=== PATIENT | female | born 1985 | race Caucasian/White ===

== ENCOUNTER 2021-02-16 14:29 | Emergency (ER) | payer SELFPAY ==
[~2021-02-16] VITALS: Ht 152 cm; Wt 63.5 kg
--- NOTE | 2021-02-16 14:57 | ED Lower Extremity ---
General Chief Complaint: Lower Extremity Stated Complaint: L ANKLE PAIN/SWOLLEN Source: patient Exam Limitations: no limitations History of Present Illness Date Seen by Provider: Feb 16, 2021 Time Seen by Provider: 14:36 Initial Comments The patient presents to the ER by private conveyance from home with chief complaint that for the last 3 days she has had increasing swelling pain and redness surrounding a wound that has been going on for the past 3 months. In itially the wound was caused by a weedeater on the medial side of her left lower extremity distal espinoza. She says she been treating the wound diligently daily with hydrogen peroxide and alcohol. She is been slicing it with an antibiotic ointment. She did see her doctor, Dr. Castillo at [facility] 2 months ago and he put her on Bactrim for a week. She took those antibiotics. He has since from [facility] and she has not followed up with anybody. She is not having any fevers nausea vomiting or diarrhea. She is asplenic and is up-to-date on all her vaccinations including Tdap. She is not however up-to-date on Covid vaccination. Allergies and Home Medications Allergies Coded Allergies: No Known Drug Allergies (Unverified , 02/16/21) Patient Home Medication List Home Medication List Reviewed: Yes Doxycycline Hyclate (Doxycycline Hyclate) 100 Mg Tablet, 100 MG PO BID Prescribed by: MAY CHANDRA on 02/16/21 1503 Review of Systems Constitutional: No chills, No fever, No malaise EENTM: No ear discharge, No ear pain Respiratory: No cough, No short of breath Cardiovascular: No chest pain, No edema Gastrointestinal: No abdominal pain, No nausea, No vomiting Genitourinary: No discharge, No dysuria Musculoskeletal: see HPI; No back pain, No joint pain Skin: see HPI, change in color, lesions Psychiatric/Neurological: Denies Anxiety, Denies Depressed All Other Systems Reviewed Negative Unless Noted: Yes Past Hfmlllv-Xgrkqi-Mymanj Hx Patient Social History Tobacco Use?: Yes Smoking Status: Current Everyday Smoker Smokeless Tobacco Frequency: Current Everyday User (Half pack per day) Substance use?: Yes Substance type: Marijuana Alcohol Use?: No Physical Exam Vital Signs Vital Signs - First Documented 02/16/21 14:35 Temp 36.8 Pulse 100 Resp 20 B/P (MAP) 184/98 (126) Pulse Ox 99 O2 Delivery Room Air Capillary Refill : Height, Weight, BMI Height: '" Weight: lbs. oz. kg; BMI Method: General Appearance: WD/WN, no apparent distress HEENT: PERRL/EOMI, TMs normal, pharynx normal Neck: full range of motion, supple, normal inspection Cardiovascular: normal peripheral pulses, regular rate, rhythm Respiratory: lungs clear, normal breath sounds, no respiratory distress, no accessory muscle use Hips: bilateral hip non-tender, bilateral hip normal inspection, bilateral hip normal range of motion Legs: bilateral leg non-tender, bilateral leg normal range of motion; left leg soft tissue tenderness, left leg swelling (Erythema, erythema, dolor, calor, rubor 1.5 cm proximal to the wound and down to the ankle) Neurologic/Psychiatric: alert, normal mood/affect Skin: other (Erythematous and mildly swollen left lower extremity as described above. Patches of dried eschar on the medial portion of the left lower extremity that are not weeping or draining.) Progress/Results/Core Measures Results/Orders My Orders Orders - MAY CHANDRA Ceftriaxone (Rocephin) (02/16/21 15:00) Lidocaine 1% Inj 20 Ml (Xylocaine 1% Inj (02/16/21 15:00) Medications Given in ED Current Medications Medications Dose Ordered Sig/Ladan Route Start Time Stop Time Status Last Admin Dose Admin Ceftriaxone Sodium 1,000 mg ONCE ONCE IM 02/16/21 15:00 02/16/21 15:01 DC 02/16/21 15:05 1,000 MG Lidocaine HCl 2.1 ml ONCE ONCE INJ 02/16/21 15:00 02/16/21 15:01 DC 02/16/21 15:05 2.1 ML Vital Signs/I&O 02/16/21 02/16/21 14:35 15:16 Temp 36.8 36.8 Pulse 100 100 Resp 20 20 B/P (MAP) 184/98 (126) 126/84 Pulse Ox 99 99 O2 Delivery Room Air Room Air Progress Progress Note : Time: 14:56 Progress Note Counseled appropriate management of wound care and cellulitis. We will put her on doxycycline for 10 days. Return precautions were given. Instructed to follow-up with a primary care doctor in 1 to 2 weeks. Because of her history of asplenia we are going to give her a referral to wound care to help manage her here locally until she can get in with a primary care doctor. Rocephin 1 g IM. Departure Impression Primary Impression: Cellulitis of left lower leg Disposition: HOME, SELF-CARE Condition: Stable Departure-Patient Inst. Decision time for Depature: 14:58 Referrals: NO,LOCAL PHYSICIAN (PCP) Primary Care Physician CATRINA ZABALA MD Patient Instructions: Cellulitis (Skin Infection), Adult (DC) Add. Discharge Instructions: Keep the wound clean with regular soap and water, body wash or shampoo. Avoid antibacterial soaps and ointments as these are unnecessary and may lead to delay wound healing. Do not use astringents such as alcohol, peroxide, chlorhexidine or iodine as this may lead to prolonged wound healing times. While at home I recommend you keep the wound open to air as much as possible. It is okay however to dress it with a light gauze dressing and tape as necessary especially in a particularly kenrick/dirty environment. Doxycycline 1 capsule twice a day with food for the next 10 days. Expect to see improvement in 3 to 4 days and in terms of swelling, pain and redness on the antibiotics. If you see redness traveling up your mid thigh or you experience fever, vomiting or other worrisome symptoms then I recommend you follow-up the same day in the nearest ER. Drink plenty of fluids. Elevate your leg above the level of your heart while at rest. Warm moist heat will help reduce pain. Plan to follow-up with the primary care doctor in the next week. You may also follow-up with wound care, Dr. Zabala by calling for an appointment at the wound care center at [phone]. Tylenol 1000 mg every 8 hours as necessary for pain. Ibuprofen 800 mg every 8 hours as necessary for pain. All discharge instructions reviewed with patient and/or family. Voiced understanding. Scripts Doxycycline Hyclate (Doxycycline Hyclate) 100 Mg Tablet 100 MG PO BID for 10 Days, #20 TAB 0 Refills Prov: MAY CHANDRA 02/16/21 Copy Copies To 1: CATRINA ZBAALA MD, TITUS J Feb 16, 2021 14:57
[2021-02-16] MEDS ORDERED: cefTRIAXone 1,000 MG VIAL IM ONE (15:00)
[2021-02-16] MEDS ORDERED: LIDOCAINE 1% INJ 20 ML 20 ML VIAL INJ ONE (15:00)
[2021-02-16] MEDS ORDERED: DOXY100T2 PO (15:03)
[2021-02-16 15:16] VITALS: BP 126/84
== END 2021-02-16 15:17 | disposition home or self-care (01) ==
LOC: ER 14:31 → EDBD 14:31 → ER 15:17
DX: L03.116 Cellulitis of left lower limb (principal); F17.210 Nicotine dependence, cigarettes, uncomplicated
CPT/HCPCS: 99284

== ENCOUNTER 2021-11-13 23:59 | Emergency (ER) | payer SELFPAY ==
[~2021-11-13 23:59] MED LIST: DOXY100T2 PO
[2021-11-14 00:07] VITALS: BP 134/100
[2021-11-14] MEDS ORDERED: FAMOTIDINE 20MG/2ML IV (PEPCID) IV STA (00:39)
[2021-11-14] MEDS ORDERED: methylPREDNISolone 125 MG (Solu-MEDROL) VIAL IV STA (00:39)
[2021-11-14] MEDS ORDERED: diphenhydrAMINE 50 MG/ML INJ (BENADRYL) IV STA (00:39)
[2021-11-14] MEDS ORDERED: LACTATED RINGERS 1,000 ML IV ONE (00:45)
[2021-11-14 00:55] LABS: BILIRUBIN,URINE NEGATIVE (NEGATIVE); CLARITY,URINE CLEAR; COLOR,URINE YELLOW; GLUCOSE, URINE (UA) NEGATIVE (NEGATIVE); KETONES,URINE NEGATIVE (NEGATIVE); LEUKOCYTE ESTERASE ,URINE NEGATIVE (NEGATIVE); NITRITE,URINE NEGATIVE (NEGATIVE); PROTEIN,URINE NEGATIVE (NEGATIVE)
[2021-11-14 01:03] LABS: BACTERIA,URINE NEGATIVE /HPF
[2021-11-14 01:07] LABS: AMPHETAMINE SCREEN, URINE POSITIVE (NEGATIVE); BARBITURATE SCREEN URINE NEGATIVE (NEGATIVE); BENZODIAZEPINES SCREEN URINE NEGATIVE (NEGATIVE); CANNABINOID SCREEN, URINE POSITIVE (NEGATIVE); COCAINE SCREEN URINE NEGATIVE (NEGATIVE); METHADONE STAT NEGATIVE (NEGATIVE); OPIATE SCREEN URINE NEGATIVE (NEGATIVE); OXYCODONE STAT NEGATIVE (NEGATIVE); PROPOXYPHENE STAT NEGATIVE (NEGATIVE); TRICYCLIC ANTIDEPRESSANTS SCRE NEGATIVE (NEGATIVE)
--- NOTE | 2021-11-14 01:16 | ED General ---
General Chief Complaint: Allergic Reaction Stated Complaint: RASH,KEEPS PASSING OUT,LEFT LEG INJURY Nursing Triage Note: PT PRESENTS AND REPORTS RASH TO BACK AND ARMS. REPORTS LOC X2 TODAY. DENIES HITTING HEAD. REPORTS LOC AT HOME AND HER LEFT LEG GOING THROUGH THE VENT IN HER FLOOR. REPORTS LEFT LEG PAIN AND SWELLING. ABRASIONS NOTED TO LEFT LEG. Source of Information: Patient (SPEECH RAPID AND ERRATIC, EMOTIONALLY LABILE AND LAUGHING INTERMITTENTLY FOR NO APPARENT REASON) History of Present Illness Date Seen by Provider: Nov 14, 2021 Time Seen by Provider: 00:30 Initial Comments PT ARRIVES VIA POV FROM HOME PT WITH MULTIPLE COMPLAINTS C/O "POISON SUMAC" TO ARMS, LEGS AND TRUNK FOR THE LAST 3 DAYS STATES SHE WAS OUTSIDE SEVERAL DAYS AGO STATES RASH IS SPREADING, AND IS VERY ITCHY HAS NOT TAKEN ANYTHING FOR SYMPTOMS HAS NOT SOUGHT CARE UNTIL TONIGHT ALSO STATES SHE "PASSED OUT TWICE TODAY" FIRST TIME WAS [facility], AND SECOND TIME WAS AT HOME--BOTH EPISODES WERE THIS AFTERNOON C/O PAIN TO LEFT MONTES AREA HAS NOT TAKEN ANYTHING FOR PAIN NO PARESTHESIAS OR MOTOR DEFICITS HAD SWEATS THE FIRST TIME WHEN SHE "CAME TO' NO CHEST PAIN, NO PALPITATATIONS, NO SHORTNESS OF BREATH NO NAUSEA/VOMITING NO HEADACHE NO NECK OR BACK PAIN STATES SHE DOES NOT HAVE ANY ELECTRICITY IN HER HOME, BUT TEMP HAS NOT BEEN VERY HIGH THE LAST FEW DAYS. STATES SHE HAS USED METH FOR OVER 20 YEARS-SMOKES IT--HAS NEVER CAUSED HER TO PASS OUT. CLAIMS SHE HASN'T USED ANYTHING "FOR A COUPLE OF MONTHS" PT IS NOT COVID VACCINATED PCP: WAS DR. BROWN IN [place], [place]--HE FROM COVID OVER A YEAR AGO--[facility], AND PT HAS NOT ESTABLISHED WITH A NEW DR. PT LIVES IN [place], [place] Allergies and Home Medications Allergies Coded Allergies: No Known Drug Allergies (Unverified , 02/16/21) Patient Home Medication List Home Medication List Reviewed: Yes Doxycycline Hyclate (Doxycycline Hyclate) 100 Mg Tablet, 100 MG PO BID Prescribed by: MAY CHANDRA on 02/16/21 1503 Methylprednisolone (Medrol) 4 Mg Tab.ds.pk, 4 MG PO UD Prescribed by: ISIDORO SIMONS on 11/14/21 0201 Mometasone Furoate (Mometasone Furoate) 0.1 % Cream..g., 45 GM TP TID Prescribed by: ISIDORO SIMONS on 11/14/21 0201 Review of Systems Review of Systems Constitutional: see HPI EENTM: no symptoms reported Respiratory: no symptoms reported; No short of breath Cardiovascular: No chest pain; syncope Gastrointestinal: no symptoms reported; No abdominal pain, No diarrhea, No nausea, No vomiting Genitourinary: no symptoms reported : No (IUD IN PLACE) LMP: Nov 06, 2021 Musculoskeletal: see HPI Skin: see HPI Psychiatric/Neurological: Anxiety; Denies Headache, Denies Numbness, Denies Paresthesia, Denies Tingling, Denies Tremors, Denies Weakness Hematologic/Lymphatic: No Symptoms Reported Immunological/Allergic: no symptoms reported Past Bgvlpfc-Jntdbf-Titjax Hx Patient Social History Tobacco Use?: Yes Tobacco type used: Cigarettes Smoking Status: Current Everyday Smoker Substance use?: Yes Substance type: Methamphetamine, Marijuana Substance frequency: Daily Alcohol Use?: No Pt feels they are or have been: No Immunizations Up To Date Influenza Vaccine Up-to-Date: Yes; Up-to-Date Past Medical History Surgery/Hospitalization HX: SPLEENIC Surgeries: Yes (SPLEEN REMOVED) Abdominal Respiratory: No Cardiac: No Neurological: No : No Reproductive Disorders: No Female Reproductive Disorders: Denies LIFE SCIENCE TECHNICIAN History: IUD Genitourinary: No Gastrointestinal: Yes (SPLEEN REMOVED) Musculoskeletal: No Endocrine: No HEENT: No Cancer: No Psychosocial: Yes (SUBSTANCE ABUSE) Integumentary: No Blood Disorders: No Physical Exam Vital Signs Vital Signs - First Documented 11/14/21 00:07 Pulse 89 Resp 18 B/P (MAP) 134/100 (111) Pulse Ox 95 O2 Delivery Room Air Capillary Refill : Height, Weight, BMI Height: '" Weight: lbs. oz. kg; 27.00 BMI Method: General Appearance: No Apparent Distress, WD/WN, Anxious, Other (SPEECH RAPID AND SOMEWHAT MUMBLED AND ERRATIC, AND LABILE EMOTIONS WITH FREQUENT LAUGHING FOR NO APPARENT REASON OR INAPPROPRIATELY) HEENT: PERRL/EOMI, Other (NO SWELLING OR RASH TO FACE OR LIPS/MOUTH) Neck: Normal Inspection Respiratory: Normal Breath Sounds, No Accessory Muscle Use, No Respiratory Distress Cardiovascular: Regular Rate, Rhythm, No Edema, No JVD, No Murmur, Normal Peripheral Pulses Gastrointestinal: Non Tender, Soft Extremity: Normal Capillary Refill, No Calf Tenderness, No Pedal Edema, Other (TENDERNESS TO LEFT MONTES, WITH VERY MINOR/SUPERFICIAL ABRASION. ) Neurologic/Psychiatric: Alert, Oriented x3, No Motor/Sensory Deficits, washroom cleaner II- XII Norm as Tested Skin: Normal Color, Warm/Dry, Rash (PATCHY MACULOPAPULAR RASH WITH A FEW VESICLES--SOME WITH LINEAR DISTRIBUTION--SCATTERED ON ARMS, LEGS AND TRUNK. NONE ON FACE, NECK, PALMS OR SOLES. NO SIGNS OF SECONDARY INFECTION. ) Progress/Results/Core Measures Suspected Sepsis SIRS Temperature: Pulse: 89 Respiratory Rate: 18 Laboratory Tests 11/14/21 01:04: White Blood Count 8.8 Blood Pressure 134 /100 Mean: 111 Laboratory Tests 11/14/21 01:04: Creatinine 0.71, Platelet Count 491H, Total Bilirubin 0.3 Results/Orders Lab Results Laboratory Tests Test 11/14/21 00:50 11/14/21 01:04 Range/Units Urine Color YELLOW Urine Clarity CLEAR Urine pH 6.0 5-9 Urine Specific [place] <=1.005 1.016-1.022 Urine Protein NEGATIVE NEGATIVE Urine Glucose (UA) NEGATIVE NEGATIVE Urine Ketones NEGATIVE NEGATIVE Urine Nitrite NEGATIVE NEGATIVE Urine Bilirubin NEGATIVE NEGATIVE Urine Urobilinogen 0.2 < = 1.0 MG/DL Urine Leukocyte Esterase NEGATIVE NEGATIVE Urine RBC (Auto) NEGATIVE NEGATIVE Urine RBC NONE /HPF Urine WBC NONE /HPF Urine Squamous Epithelial Cells 5-10 /HPF Urine Crystals NONE /LPF Urine Bacteria NEGATIVE /HPF Urine Casts NONE /LPF Urine Mucus NEGATIVE /LPF Urine Culture Indicated NO Urine Opiates Screen NEGATIVE NEGATIVE Urine Oxycodone Screen NEGATIVE NEGATIVE Urine Methadone Screen NEGATIVE NEGATIVE Urine Propoxyphene Screen NEGATIVE NEGATIVE Urine Barbiturates Screen NEGATIVE NEGATIVE Ur Tricyclic Antidepressants Screen NEGATIVE NEGATIVE Urine Phencyclidine Screen NEGATIVE NEGATIVE Urine Amphetamines Screen POSITIVE H NEGATIVE Urine Methamphetamines Screen POSITIVE H NEGATIVE Urine Benzodiazepines Screen NEGATIVE NEGATIVE Urine Cocaine Screen NEGATIVE NEGATIVE Urine Cannabinoids Screen POSITIVE H NEGATIVE White Blood Count 8.8 4.3-11.0 10^3/uL Red Blood Count 3.81 3.80-5.11 10^6/uL Hemoglobin 10.6 L 11.5-16.0 g/dL Hematocrit 33 L 35-52 % Mean Corpuscular Volume 87 80-99 fL Mean Corpuscular Hemoglobin 28 25-34 pg Mean Corpuscular Hemoglobin Concent 32 32-36 g/dL Red Cell Distribution Width 16.4 H 10.0-14.5 % Platelet Count 491 H 130-400 10^3/uL Mean Platelet Volume 9.5 9.0-12.2 fL Immature Granulocyte % (Auto) 0 % Neutrophils (%) (Auto) 53 42-75 % Lymphocytes (%) (Auto) 32 12-44 % Monocytes (%) (Auto) 10 0-12 % Eosinophils (%) (Auto) 3 0-10 % Basophils (%) (Auto) 1 0-10 % Neutrophils # (Auto) 4.7 1.8-7.8 10^3/uL Lymphocytes # (Auto) 2.9 1.0-4.0 10^3/uL Monocytes # (Auto) 0.9 0.0-1.0 10^3/uL Eosinophils # (Auto) 0.3 0.0-0.3 10^3/uL Basophils # (Auto) 0.1 0.0-0.1 10^3/uL Immature Granulocyte # (Auto) 0.0 0.0-0.1 10^3/uL Sodium Level 141 135-145 MMOL/L Potassium Level 3.5 L 3.6-5.0 MMOL/L Chloride Level 105 98-107 MMOL/L Carbon Dioxide Level 25 21-32 MMOL/L Anion Gap 11 5-14 MMOL/L Blood Urea Nitrogen 6 L 7-18 MG/DL Creatinine 0.71 0.60-1.30 MG/DL Estimat Glomerular Filtration Rate 114 BUN/Creatinine Ratio 8 Glucose Level 70 70-105 MG/DL Calcium Level 8.9 8.5-10.1 MG/DL Corrected Calcium 9.0 8.5-10.1 MG/DL Magnesium Level 1.9 1.6-2.4 MG/DL Total Bilirubin 0.3 0.1-1.0 MG/DL Aspartate Amino Transf (AST/SGOT) 16 5-34 U/L Alanine Aminotransferase (ALT/SGPT) 16 0-55 U/L Alkaline Phosphatase 74 40-136 U/L Troponin I < 0.028 <0.028 NG/ML Total Protein 6.4 6.4-8.2 GM/DL Albumin 3.9 3.2-4.5 GM/DL Serum Test, Qualitative NEGATIVE NEGATIVE Serum Alcohol < 10 <10 MG/DL My Orders Orders - KRISTYNISIDOROAndrew Palacios DO Ed Iv/Invasive Line Start (11/14/21 00:39) Ekg Tracing (11/14/21 00:39) Monitor-Rhythm Ecg Trace Only (11/14/21 00:39) Alcohol (11/14/21 00:39) Cbc With Automated Diff (11/14/21 00:39) Comprehensive Metabolic Panel (11/14/21 00:39) Drug Screen Stat (Urine) (11/14/21 00:39) Magnesium (11/14/21 00:39) Ua Culture If Indicated (11/14/21 00:39) Troponin I [place] (11/14/21 00:39) Tibia/Fibula, Left, 2 Views (11/14/21 00:39) Ed Iv/Invasive Line Start (11/14/21 00:39) Lactated Ringers (Lr 1000 Ml Iv Solution (11/14/21 00:45) Famotidine Injection (Pepcid Injection) (11/14/21 00:39) Diphenhydramine Injection (Benadryl Inje (11/14/21 00:39) Methylprednisolone Sod Succ (Solu-Medrol (11/14/21 00:39) Hcg,Qualitative Serum (11/14/21 01:01) Medications Given in ED Current Medications Medications Dose Ordered Sig/Ladan Route Start Time Stop Time Status Last Admin Dose Admin Lactated Ringer's 1,000 ml @ 0 mls/hr Q0M ONCE IV 11/14/21 00:45 11/14/21 00:46 DC 11/14/21 00:59 0 MLS/HR Vital Signs/I&O 11/14/21 00:07 Pulse 89 Resp 18 B/P (MAP) 134/100 (111) Pulse Ox 95 O2 Delivery Room Air Capillary Refill : Blood Pressure Mean: 111 Progress Note : Progress Note GIVEN BENADRYL, PEPCID AND SOLU-MEDROL WITH IMPROVEMENT IN ITCHING NO DETERIORATION IN PT'S CONDITION DURING ER STAY ECG Initial ECG Impression Date: Nov 14, 2021 Initial ECG Impression Time: 00:48 Initial ECG Rate: 68 Initial ECG Rhythm: Normal Sinus Initial ECG Impression: Normal Diagnostic Imaging Comments LEFT TIB-FIB XRAYS--NO ACUTE PROCESS, PENDING RADIOLOGIST REVIEW Reviewed: Reviewed by Me Departure Impression Primary Impression: Rash Additional Impressions: SELF REPORTED SYNCOPAL EPISODES Illicit drug use Contusion of left lower leg Disposition: HOME, SELF-CARE Condition: Stable Departure-Patient Inst. Decision time for Depature: 01:55 Referrals: NO,LOCAL PHYSICIAN (PCP/Family) Primary Care Physician Patient Instructions: Skin Rash (DC), Taking Care of Bruises, Substance Use Disorder ED Add. Discharge Instructions: NO DRUGS LOTS OF CLEAR LIQUIDS-NO COFFEE, POP OR TEA FOLLOW UP WITH YOUR DR IF SYMPTOMS PERSIST All discharge instructions reviewed with patient and/or family. Voiced understanding. Scripts Methylprednisolone (Medrol) 4 Mg Tab.ds.pk 4 MG PO UD for 6 Days, #21 PKG PER DOSE PACK INSTRUCTIONS Prov: ISIDORO SIMONS DO 11/14/21 Mometasone Furoate (Mometasone Furoate) 0.1 % Cream..g. 45 GM TP TID, #1 TUBE Prov: ISIDORO SIMONS DO 11/14/21 ISIDORO SIMONS DO Nov 14, 2021 01:16
[2021-11-14 01:20] LABS: BASOPHILS # (AUTO) 0.1 10^3/uL (0.0-0.1); BASOPHILS % (AUTO) 1 % (0-10); EOSINOPHILS # (AUTO) 0.3 10^3/uL (0.0-0.3); EOSINOPHILS % (AUTO) 3 % (0-10); HEMATOCRIT 33 % (35-52); HEMOGLOBIN 10.6 g/dL (11.5-16.0); LYMPHOCYTES # (AUTO) 2.9 10^3/uL (1.0-4.0); LYMPHOCYTES % (AUTO) 32 % (12-44); MEAN CORPUSCULAR HEMOGLOBIN 28 pg (25-34); MEAN CORPUSCULAR HGB CONC 32 g/dL (32-36); MEAN CORPUSCULAR VOLUME 87 fL (80-99); MEAN PLATELET VOLUME 9.5 fL (9.0-12.2); MONOCYTES # (AUTO) 0.9 10^3/uL (0.0-1.0); MONOCYTES % (AUTO) 10 % (0-12); NEUTROPHILS # (AUTO) 4.7 10^3/uL (1.8-7.8); NEUTROPHILS % (AUTO) 53 % (42-75); PLATELET COUNT 491 10^3/uL (130-400); WHITE BLOOD COUNT 8.8 10^3/uL (4.3-11.0)
[2021-11-14 01:44] LABS: ALANINE AMINOTRANSFERASE 16 U/L (0-55); ALBUMIN 3.9 GM/DL (3.2-4.5); ALKALINE PHOSPHATASE 74 U/L (40-136); BILIRUBIN,TOTAL 0.3 MG/DL (0.1-1.0); BUN/CREATININE RATIO 8; CALCIUM 8.9 MG/DL (8.5-10.1); CARBON DIOXIDE 25 MMOL/L (21-32); CHLORIDE 105 MMOL/L (98-107); CREATININE SERUM 0.71 MG/DL (0.60-1.30); GFR ESTIMATED 114; GLUCOSE 70 MG/DL (70-105); MAGNESIUM 1.9 MG/DL (1.6-2.4); POTASSIUM 3.5 MMOL/L (3.6-5.0); SODIUM 141 MMOL/L (135-145); TOTAL PROTEIN 6.4 GM/DL (6.4-8.2)
[2021-11-14] MEDS ORDERED: MOME45CR3 TP (02:01)
[2021-11-14] MEDS ORDERED: METH4TAB PO (02:01)
--- NOTE | 2021-11-14 06:40 | Diagnostic Imaging Report ---
Indication: Left leg pain. FINDINGS: 2 views. The tibia and fibula are intact. No fractures are seen. No periosteal reactive changes. The knee and ankle show good alignment. IMPRESSION: Normal tibia and fibula. Dictated by: Dictated on workstation # [id number]
== END 2021-11-14 02:06 | disposition home or self-care (01) ==
LOC: EDUNIT# 23:59 → ER 11-14 00:03
DX: S80.12XA Contusion of left lower leg, initial encounter (principal); R55 Syncope and collapse; R21 Rash and other nonspecific skin eruption; F12.10 Cannabis abuse, uncomplicated; F15.10 Other stimulant abuse, uncomplicated; F17.210 Nicotine dependence, cigarettes, uncomplicated; Z28.310 Unvaccinated for COVID-19; W19.XXXA Unspecified fall, initial encounter
CPT/HCPCS: 73590; 80053; 80306; 81000; 83735; 84484; 84703; 85025; 93005; 99283; G0480; 36415; 80320